=== PATIENT | female | born 1970 | race Two or more races ===

== ENCOUNTER → 2019-05-09 | Day surgery (SDC) | payer BC, MEDICAID ==
[2019-05-05 09:28] LABS: BASOPHIL % 0.3 % (0-2); PLATELET COUNT 239 x10^3mcL (130-400); RED CELL DISTRIBUTION WIDTH 13.5 % (11.5-14.5)
[2019-05-05 09:29] LABS: ALBUMIN 3.5 g/dL (3.4-5.0); ALKALINE PHOSPHATASE 65 U/L (46-116); ALT/SGPT 38 U/L (14-59); AST/SGOT 19 U/L (15-37); BILIRUBIN TOTAL 0.6 mg/dL (0.20-1.00); CARBON DIOXIDE 28.4 mmol/L (21-32); CHLORIDE SERUM 106 mmol/L (98-107); CREATININE SERUM 0.8 mg/dL (0.6-1.0); GFR1 > 60 mL/min; GLUCOSE SERUM 90 mg/dL (74-106); POTASSIUM SERUM 4.7 mmol/L (3.5-5.1); SODIUM SERUM 142 mmol/L (136-145); TOTAL PROTEIN, SERUM 7.4 g/dL (6.4-8.2)
[~2019-05-09] VITALS: Ht 165.1 cm; Wt 72.1 kg
[2019-05-09 09:25] VITALS: BP 131/75
[2019-05-09 17:49] VITALS: BP 133/68
== END | disposition home or self-care (01) ==
LOC: DS 09:01 → MA 10:00 → DS 10:00 → OR 13:30
PROVIDERS: Surgery
PROC: BH41ZZZ Ultrasonography of Left Breast (ICD-10-PCS; 2019-05-09)
PROC: 0HBU0ZZ Excision of Left Breast, Open Approach (ICD-10-PCS; principal; 2019-05-09 13:30)
DX: N60.92 Unspecified benign mammary dysplasia of left breast (principal); N60.22 Fibroadenosis of left breast; Z68.27 Body mass index [BMI] 27.0-27.9, adult; Z88.2 Allergy status to sulfonamides
CPT/HCPCS: 76642; 88344; J0690; J1170; J2001; J2250; J2704; J3010; J3490; J7120; Q0092